=== PATIENT | female | born 1940 | race Caucasian/White ===

== ENCOUNTER → 2023-07-23 09:56 | Outpatient (BNVA) | payer OTHER, SELFPAY | PROVIDERS: Referring Provider Emergency Medicine; Visit Provider Specialist | DX: S52.571A Other intraarticular fracture of lower end of right radius, initial encounter for closed fracture; W19.XXXA Unspecified fall, initial encounter; Z46.89 Encounter for fitting and adjustment of other specified devices; S52.501D Unspecified fracture of the lower end of right radius, subsequent encounter for closed fracture with routine healing; X58.XXXD Exposure to other specified factors, subsequent encounter | CPT/HCPCS: 25600; 73110; 97760; 99204; L3982 ==

== ENCOUNTER 2023-07-23 11:06 | Outpatient (CLI) | payer MEDICARE, MEDICAID, SELFPAY | END 2023-07-23 11:07 | disposition home or self-care (01) | LOC: SPT 11:07 | PROVIDERS: Visit Provider Specialist | DX: Z46.89 Encounter for fitting and adjustment of other specified devices (principal); S52.501D Unspecified fracture of the lower end of right radius, subsequent encounter for closed fracture with routine healing; X58.XXXD Exposure to other specified factors, subsequent encounter | CPT/HCPCS: 25600; 97760; 99204; L3982 ==

== ENCOUNTER 2025-09-01 02:22 | Inpatient (IN) | payer MEDICARE, MEDICAID, SELFPAY ==
[2025-09-01] VITALS (19 sets, daily range): BP systolic 101–149; BP diastolic 52–82; PULSE 84–111; RESP 16–18; TEMP 36.4–37; O2SAT 90–97
--- NOTE | 2025-09-01 02:41 | XRR_ITS ---
PROCEDURE INFORMATION: Exam: XR Right Hip Exam date and time: 09/01/2025 2:49 AM Age: 85 years old Clinical indication: Hip pain; Right hip; PT very combative. Not following instructions. Hitting staff. ; Additional info: Fall, rle IR TECHNIQUE: Imaging protocol: Radiologic exam of the right hip. Views: 1 view hip with pelvis when performed. COMPARISON: No relevant prior studies available. FINDINGS: Bones/joints: Displace intertrochanteric/subtrochanteric femoral fracture with proximal femoral shaft override. The femoral head remains seated in the acetabulum. The right hemipelvis appears intact. Soft tissues: Unremarkable. XR/XR hip RT 1V wo/w pel [id number] IMPRESSION: Displace intertrochanteric/subtrochanteric femoral fracture with proximal femoral shaft override.
--- NOTE | 2025-09-01 02:43 | ED_ITS ---
HPI - Extremity Injury (Lower) 2 General: Chief Complaint: Fall Stated Complaint: right hip pain post fall Time Seen by Provider: 09/01/25 02:33 Related Data Home Medications ?Medication ?Instructions ?Recorded ?Confirmed omeprazole 20 mg capsule,delayed 20 mg PO DAILY 09/01/25 release acetaminophen 325 mg tablet 650 mg PO QID PRN Fever Or Pain 09/01/25 09/01/25 (Tylenol) bisacodyl 10 mg rectal suppository 10 mg [place] DAILY PRN Constipation 09/01/25 09/01/25 bisacodyl 5 mg tablet 20 mg PO DAILY PRN Constipat ion 09/01/25 09/01/25 brexpiprazole 2 mg tablet (Rexulti) 2 mg PO DAILY 08/0509/01/25 diphenhydramine HCl 25 mg capsule 25 mg PO TID PRN Surjit h 09/01/25 09/01/25 (Benadryl) haloperidol 1 mg tablet 1 mg PO DAILY 09/01/2509/01 hydrocodone 5 mg-acetaminophen 325 1 tab PO Q6H PRN Pa in 09/01/25 09/01/25 mg tablet lorazepam 2 mg/mL oral concentrate 0.5 mg PO Q2H PRN r estlessness 09/01/25 09/01/25 magnesium hydroxide 400 mg/5 mL 15 ml PO DAILY PRN Con stipation 09/01/25 09/01/25 oral suspension (Milk of Magnesia) morphine concentrate 100 mg/5 mL 0.25 mg PO Q4H PRN Pa in 09/01/25 09/01/25 (20 mg/mL) oral solution polyethylene glycol 3350 17 17 g PO DAILY PRN Constipa tion 09/01/25 09/01/25 gram/dose oral powder (Miralax) rivastigmine 9.5 mg/24 hour 9.5 mg transdermal DAILY 1 09/01/25 transdermal patch (Exelon Patch) sennosides 8.6 mg-docusate sodium 2 tab-cap PO DAILY P RN bowel 09/01/25 09/01/25 50 mg tablet (Senna-S) movement sodium phosphates 19 gram-7 118 ml [place] DAILY PRN Consti pation 09/01/25 09/01/25 gram/118 mL enema (Enema) Previous Rx's ?Medication ?Instructions ?Recorded fast form cock up splint #1 ea 07/23/23 Allergies Allergy/AdvReac Type Severity Reaction Status Date / Time No Known Allergies Allergy Verified 07/23/23 09:48 PFS ED 2 PFSH: Medical History (Updated 09/01/25 @ 08:11 by Danyelle Amin MD) Anxiety Social History (Updated 07/23/23 @ 09:50 by Rudi Pierre LPN) Smoking and tobacco/nicotine status: never used tobacco/nicotine Alcohol intake: never Substance/Drug Use: never Course 2 Vital Signs: Vital signs: Vital Signs Temperature 97.5 F L 09/02/25 04:00 Pulse Rate 98 09/02/25 04:00 Respiratory Rate 16 09/02/25 04:00 Blood Pressure 148/75 09/02/25 04:00 Pulse Oximetry 93 09/02/25 04:00 Oxygen Delivery Me thod Room Air 09/01/25 11:04 MDM - Extremity Injury (Lower) Lab Data 09/02/25 02:55 09/02/25 02:55 Radiology Impressions Hip X-Ray 09/01/25 02:41 IMPRESSION: Displace intertrochanteric/subtrochanteric femoral fracture with proximal femoral shaft override. Femur X-Ray 09/01/25 11:01 IMPRESSION: 1. The distal 50% of the femur is out of the [id number]. Again noted is intertrochanteric fracture of the RIGHT hip with coxa vera deformity. 2. There may be a large fecal impaction in the central pelvis. Suggest KUB for follow-up. Discharge Plan Discharge Patient Disposition: Admitted As Inpatient Admit Provider: Danyelle Amin Condition: Stable Coding Level of Care Code ED Core Machine Operator for Rakesh Kelly
--- NOTE | 2025-09-01 02:43 | W.ED.LOWEXIN ---
HPI - Extremity Injury (Lower) General: Chief Complaint: Fall Stated Complaint: right hip pain post fall Time Seen by Provider: 09/01/25 02:33 Related Data Home Medications ?Medication ?Instructions ?Recorded ?Confirmed omeprazole 20 mg capsule,delayed 20 mg PO DAILY 07/23/23 09/01/25 release acetaminophen 325 mg tablet 650 mg PO QID PRN Fever Or Pain 09/01/25 09/01/25 (Tylenol) bisacodyl 10 mg rectal suppository 10 mg [place] DAILY PRN Constipation 09/01/25 09/01/25 bisacodyl 5 mg tablet 20 mg PO DAILY PRN Constipation 09/01/25 09/01/25 brexpiprazole 2 mg tablet (Rexulti) 2 mg PO DAILY 09/01/25 09/01/25 diphenhydramine HCl 25 mg capsule 25 mg PO TID PRN Rash 09/01/25 09/01/25 (Benadryl) haloperidol 1 mg tablet 1 mg PO DAILY 09/01/25 09/01/25 hydrocodone 5 mg-acetaminophen 325 1 tab PO Q6H PRN Pain 09/01/25 09/01/25 mg tablet lorazepam 2 mg/mL oral concentrate 0.5 mg PO Q2H PRN restlessness 09/01/25 09/01/25 magnesium hydroxide 400 mg/5 mL 15 ml PO DAILY PRN Constipation 09/01/25 09/01/25 oral suspension (Milk of Magnesia) morphine concentrate 100 mg/5 mL 0.25 mg PO Q4H PRN Pain 09/01/25 09/01/25 (20 mg/mL) oral solution polyethylene glycol 3350 17 17 g PO DAILY PRN Constipation 09/01/25 09/01/25 gram/dose oral powder (Miralax) rivastigmine 9.5 mg/24 hour 9.5 mg transdermal DAILY 09/01/25 09/01/25 transdermal patch (Exelon Patch) sennosides 8.6 mg-docusate sodium 2 tab-cap PO DAILY PRN bowel 09/01/25 09/01/25 50 mg tablet (Senna-S) movement sodium phosphates 19 gram-7 118 ml [place] DAILY PRN Constipation 09/01/25 09/01/25 gram/118 mL enema (Enema) Previous Rx's ?Medication ?Instructions ?Recorded fast form cock up splint #1 ea 07/23/23 Allergies Allergy/AdvReac Type Severity Reaction Status Date / Time No Known Allergies Allergy Verified 07/23/23 09:48 PFS ED PFSH: Medical History (Updated 09/01/25 @ 08:11 by Danyelle Amin MD) Anxiety Social History (Updated 07/23/23 @ 09:50 by Rudi Pierre LPN) Smoking and tobacco/nicotine status: never used tobacco/nicotine Alcohol intake: never Substance/Drug Use: never Course Vital Signs: Vital signs: Vital Signs Temperature 97.5 F L 09/02/25 04:00 Pulse Rate 98 09/02/25 04:00 Respiratory Rate 16 09/02/25 04:00 Blood Pressure 148/75 09/02/25 04:00 Pulse Oximetry 93 09/02/25 04:00 Oxygen Delivery Me thod Room Air 09/01/25 11:04 MDM - Extremity Injury (Lower) Lab Data 09/02/25 02:55 09/02/25 02:55 Radiology Impressions Hip X-Ray 09/01/25 02:41 IMPRESSION: Displace intertrochanteric/subtrochanteric femoral fracture with proximal femoral shaft override. Femur X-Ray 09/01/25 11:01 IMPRESSION: 1. The distal 50% of the femur is out of the [id number]. Again noted is intertrochanteric fracture of the RIGHT hip with coxa vera deformity. 2. There may be a large fecal impaction in the central pelvis. Suggest KUB for follow-up. Discharge Plan Discharge Patient Disposition: Admitted As Inpatient Admit Provider: Danyelle Amin Condition: Stable Coding Level of Care Code ED Header Operator for Rakesh Fwashia
[2025-09-01] MEDS: diphenhydrAMINE 50 mg/mL SDV 1mL IM (03:00)
[2025-09-01] MEDS: haloperidol inj 5 mg/mL INJ 1 mL 2 MG IM ×2 (03:00→20:12)
[2025-09-01] MEDS: morphine 4 mg/mL SDV 1 mL 2 MG IM (06:06)
--- NOTE | 2025-09-01 06:52 | PM.HP ---
Providers/Chief Complaint Admitting Physician: Danyelle Amin MD--patient admitted at 7 AM Chief Complaint: right hip pain post fall History of Present Illness Lila Pitt is a 85 year old female assisted resident with a history of dementia who had sustained a mechanical fall fracturing the right hip. Patient then was brought in to be evaluated and possibly repaired at the broken hip. Patient is very demented cannot give you any history. The paper for the power of integration aide is in the patient's chart. Patient does have history of anxiety disorder on BuSpar in depression on antidepressants but no significant medical problem. Patient seem to be doing okay, calm and quiet orthopedics Dr. Cooper had been consulted for care. And I have contacted the team Dr. Cooper at this time is actively operating on someone in the surgical suite. Medications/Allergies Home Medications ?Medication ?Instructions ?Recorded ?Confirmed ?Last Taken ?Type buspirone 15 mg tablet 15 mg PO BID 07/23/23 07/23/23 Unknown History escitalopram oxalate 5 mg tablet 5 mg PO DAILY 07/23/23 07/23/23 Unknown History (Lexapro) fast form cock up splint #1 ea 07/23/23 07/23/23 Unknown Rx fluoxetine 20 mg capsule (Prozac) 20 mg PO DAILY 07/23/23 07/23/23 Unknown History lorazepam 0.5 mg tablet 0.5 mg PO TID 07/23/23 07/23/23 Unknown History mirtazapine 15 mg tablet 15 mg PO DAILY 07/23/23 07/23/23 Unknown History omeprazole 20 mg capsule,delayed 20 mg PO DAILY 07/23/23 07/23/23 Unknown History release sennosides 8.6 mg capsule (senna) 8.6 mg PO DAILY 07/23/23 07/23/23 Unknown History Allergies Allergy/AdvReac Type Severity Reaction Status Date / Time No Known Allergies Allergy Verified 07/23/23 09:48 PFSH Acute PFSH: Medical History (Updated 09/01/25 @ 08:11 by Danyelle Amin MD) Anxiety Social History (Updated 07/23/23 @ 09:50 by uRdi Pierre LPN) Smoking and tobacco/nicotine status: never used tobacco/nicotine Alcohol intake: never Substance/Drug Use: never Vitals/I&O/Wt Last Vital Signs Temp 98.2 F 09/01/25 02:54 Pulse 95 09/01/25 05:13 Resp 16 09/01/25 06:06 BP 105/53 09/01/25 05:13 Pulse Ox 96 09/01/25 06:06 O2 Del Method Room Air 09/01/25 04:28 Weight last 48 hrs Weight 43.091 kg Physical Exam Narrative: Patient does not look ill-appearing does not look to be in pain and is not Bogart for pain medication. HEENT patient is lying down in no apparent distress, normocephalic atraumatic neck neck is supple cardiovascular heart rate is regular lungs are pretty much clear abdomen soft nontender nondistended unremarkable extremities are intact no edema has good pulses neurology has no focality lab studies lab studies reviewed and noted. A&P Assessment and plan 1. Closed right hip fracture: 2. Anxiety disorder: 3. GERD (gastroesophageal reflux disease): 4. Acute right hip pain: Plan: Right hip fracture status post mechanical fall - Admit to medical surgery unit - Orthopedics consulted - Must continue to follow through and optimize - Patient had been made n.p.o. - Patient can have sips of water with medication - Patient is with dementia and needs care and explaining things but cannot give consent to procedure but the power of integration aide papers are on chart for this patient for use. Anxiety disorder - Continue patient's BuSpar Depression - Continue patient home antidepressant GI and DVT prophylaxis in place PDMP PDMP Reviewed: Not Reviewed Attestations Medical Necessity Statement*: Patient status post mechanical fall fracturing the right hip and need for repair and will need at least 2 midnights for care. Coding Level of Care Code 52399 Diagnoses Closed right hip fracture S72.001A Anxiety disorder F41.9 GERD (gastroesophageal reflux disease) K21.9 Acute right hip pain M25.551 Time Spent (min) 60
[2025-09-01] MEDS: pantoprazole 40 mg SDV IVP (08:28)
[2025-09-01] MEDS: morphine 4 mg/mL SDV 1 mL IVP ×2 (09:42→18:36)
--- NOTE | 2025-09-01 11:01 | XR_ITS ---
WS: [id number] Exam: XR femur RT min 2V* [id number] Date/Time of Exam: 09/01/2025 11:01 AM Reason For Exam: right hip fx Of the upper 50% of the femur is imaged. Again noted is an intertrochanteric fracture of the RIGHT hip with pronounced coxa vera deformity. Avulsion of the lesser trochanter. The distal 50% of the femur is not visualized. Incidentally noted is what appears to represent a large fecal impaction in the visualized mid pelvis. Detailed XR/XR femur RT min 2V* [id number] IMPRESSION: 1. The distal 50% of the femur is out of the [id number]. Again noted is inte rtrochanteric fracture of the RIGHT hip with coxa vera deformity. 2. There may be a large fecal impaction in the central pelvis. Suggest KUB for follow-up.
--- NOTE | 2025-09-01 11:19 | PM.CONSULT ---
Documented by User: EMILY Best 09/01/25 15:12 Providers/Reason For Consult Consulting Physician/Specialty*: Dr. Allison DO/orthopedic surgeon Reason for Consult*: Right hip fracture Requesting Physician: Dr. Weiner/emergency room physician Attending Physician: Akiko Birmingham MD History of Present Illness History of Present Illness Lila Pitt is a 85 year old female prison resident with a history of dementia who had sustained a mechanical fall fracturing the right hip. Patient is very demented cannot give you any history. Patient is not on any blood thinners. The paper for the power of assistant attorney general is in the patient's chart. No family members listed in chart to contact. HPI obtained from reviewing ER note and hospitalist note. Review of Systems General: Reports: ROS unobtainable due to mental status Medications/Allergies Home Medications ?Medication ?Instructions ?Recorded ?Confirmed ?Last Taken ?Type buspirone 15 mg tablet 15 mg PO BID 07/23/23 07/23/23 Unknown History escitalopram oxalate 5 mg tablet 5 mg PO DAILY 07/23/23 07/23/23 Unknown History (Lexapro) fast form cock up splint #1 ea 07/23/23 07/23/23 Unknown Rx fluoxetine 20 mg capsule (Prozac) 20 mg PO DAILY 07/23/23 07/23/23 Unknown History lorazepam 0.5 mg tablet 0.5 mg PO TID 07/23/23 07/23/23 Unknown History mirtazapine 15 mg tablet 15 mg PO DAILY 07/23/23 07/23/23 Unknown History omeprazole 20 mg capsule,delayed 20 mg PO DAILY 07/23/23 07/23/23 Unknown History release sennosides 8.6 mg capsule (senna) 8.6 mg PO DAILY 07/23/23 07/23/23 Unknown History Allergies Allergy/AdvReac Type Severity Reaction Status Date / Time No Known Allergies Allergy Verified 07/23/23 09:48 Current Medications Generic Name Dose Route Start Last Admin Trade Name Freq PRN Reason Stop Dose Admin Sodium Chloride 1,000 mls @ 75 mls/hr 09/01/25 08:00 09/01/25 09:35 Sodium Chloride 0.9% IV 75 mls/hr .[id number] LILLI Administration Morphine Sulfate 4 mg 09/01/25 07:52 09/01/25 09:42 Morphine 4 Mg/Ml Sdv 1 Ml IVP 4 mg Q4H PRN Administration SEVERE PAIN Pantoprazole Sodium 40 mg 09/01/25 08:00 09/01/25 08:28 Pantoprazole 40 Mg Sdv IVP 40 mg Q24H LILLI Administration PFSH Acute PFSH: Medical History (Updated 09/01/25 @ 08:11 by Danyelle Amin MD) Anxiety Social History (Updated 07/23/23 @ 09:50 by Rudi Pierre LPN) Smoking and tobacco/nicotine status: never used tobacco/nicotine Alcohol intake: never Substance/Drug Use: never Vitals/I&O/Wt Last Vital Signs Temp 97.7 F 09/01/25 11:04 Pulse 102 H 09/01/25 11:04 Resp 16 09/01/25 11:04 BP 125/70 09/01/25 11:04 Pulse Ox 96 09/01/25 11:04 O2 Del Method Room Air 09/01/25 11:04 Weight last 48 hrs Weight 91 lb 7 oz Weight 95 lb Physical Exam Narrative: Patient is laying comfortably in bed and in no acute distress. Due to patient's dementia exam is limited. Const: COMMON NORMALS: no acute distress and alert Resp: COMMON NORMALS: normal respiratory effort and No retractions Cardio: COMMON NORMALS: Peripheral pulses 2+ throughout PERIPHERAL PULSES: Peripheral pulses 2+ throughout Extremity: NARRATIVE EXTREMITY EXAM: (Right) lower extremity- Positive logroll test. Tenderness to palpation right hip. compartments are soft and compressible. Toes are warm and well-perfused. Pedal pulse 2+. Secondary assessment of other extremities. Upper extremities-no visible injuries, abrasions. Full range of motion in shoulders, elbows and wrist. no tenderness to palpation of shoulders or wrist. (Left) lower extremity-no visible injury or trauma seen. Negative logroll test. Pedal pulse 2+ Neuro: SENSORIUM/ORIENTATION: Yes alert Skin: GENERAL SKIN EXAM: dry skin Data 09/01/25 14:15 09/01/25 13:18 A&P Assessment and plan 1. Closed right hip fracture: Plan: Plan: -Imaging and Labs reviewed -Hospitalist on board for medical management. -VTE prophylaxis -Nonweightbearing on right leg -Pain control - Continue n.p.o. today -Surgery later today for Right hip Trochanteric femur nail PDMP PDMP Reviewed: Not Reviewed Coding Level of Care Code Acute Code for Chg Fwd Diagnoses Closed right hip fracture S72.001A Documented by User: Rodger Cooper DO 09/01/25 14:44 Medications/Allergies Home Medications ?Medication ?Instructions ?Recorded ?Confirmed ?Last Taken ?Type buspirone 15 mg tablet 15 mg PO BID 07/23/23 07/23/23 Unknown History escitalopram oxalate 5 mg tablet 5 mg PO DAILY 07/23/23 07/23/23 Unknown History (Lexapro) fast form cock up splint #1 ea 07/23/23 07/23/23 Unknown Rx fluoxetine 20 mg capsule (Prozac) 20 mg PO DAILY 07/23/23 07/23/23 Unknown History lorazepam 0.5 mg tablet 0.5 mg PO TID 07/23/23 07/23/23 Unknown History mirtazapine 15 mg tablet 15 mg PO DAILY 07/23/23 07/23/23 Unknown History omeprazole 20 mg capsule,delayed 20 mg PO DAILY 07/23/23 07/23/23 Unknown History release sennosides 8.6 mg capsule (senna) 8.6 mg PO DAILY 07/23/23 07/23/23 Unknown History Allergies Allergy/AdvReac Type Severity Reaction Status Date / Time No Known Allergies Allergy Verified 07/23/23 09:48 PFSH Acute PFSH: Medical History (Updated 09/01/25 @ 08:11 by Danyelle Amin MD) Anxiety Social History (Updated 07/23/23 @ 09:50 by Rudi Pierre LPN) Smoking and tobacco/nicotine status: never used tobacco/nicotine Alcohol intake: never Substance/Drug Use: never Physical Exam Extremity: NARRATIVE EXTREMITY EXAM: (Right) lower extremity- Positive logroll test. Tenderness to palpation right hip. compartments are soft and compressible. Toes are warm and well-perfused. Pedal pulse 2+. Secondary assessment of other extremities. Upper extremities-no visible injuries, abrasions. Patient is unable to follow commands but will involuntarily move shoulders elbows and wrist. no tenderness to palpation of shoulders or wrist. (Left) lower extremity-no visible injury or trauma seen. Negative logroll test. Pedal pulse 2+ Data 09/01/25 14:15 09/01/25 13:18 A&P Assessment and plan 1. Closed right hip fracture: Plan: Plan: -Imaging and Labs reviewed -Hospitalist on board for medical management. -VTE prophylaxis -Nonweightbearing on right leg -Pain control - Continue n.p.o. today -Surgery later today for Right hip Trochanteric femur nail Orthopedic attending addendum: Patient at this point in time is severely demented and presented to the emergency department after sustaining a fall and has a displaced right hip intertrochanteric femur fracture. Patient unfortunately given her dementia is unable to obtain a history from the patient review of her medical records she is not on any blood thinners. As well as discussing with the hospitalist patient has been n.p.o. since midnight. Patient at this point in time has a POA who we spoke to on the phone we talked about the ins and outs of her diagnosis as far as the treatment options far as nonoperative operative mention. We talked about the risk benefits complication alternatives surgical nonsurgical treatment options. Risk of surgery include but not limited to make a better make it worse, injury to nerves vessels or tendons, infection, hardware failure, on the table. Understanding risk of surgery patient's POA agrees and elects to proceed with surgical intervention for a right hip trochanteric femur nail. Plan for this and benefit would be of pain control mostly for the patient as well as comfort while she mobilizes for transfers as this would allow for weightbearing as tolerated. Once again POA understands agrees to current plan. All questions answered. Will proceed with surgical intervention today. Orthopedic attending update: 2:35 PM?reach back out to POA and updated her labs that were obtained in the preop area demonstrated her hemoglobin was 5.8 and her recheck demonstrated 5.5 getting this low hemoglobin we will hold off on her surgery today with plan of getting her PRBCs today and get her optimized for surgical intervention tomorrow. I did speak with the hospitalist as well as her POA and are on the same page moving forward with the plan of optimizing her with blood today and plan for surgical intervention for right hip trochanteric femur nail tomorrow we will call and update POA tomorrow. All questions answered. PDMP PDMP Reviewed: Not Reviewed Coding Level of Care Code Acute Code for Chg Fwd Diagnoses Closed right hip fracture S72.001A
--- NOTE | 2025-09-01 12:48 | PC.NURSE ---
1245 patient went down to surgery.
[2025-09-01] MEDS: midazolam 1 mg/mL INJ 2 mL 2 MG IVP ×2 (13:09→14:59)
[2025-09-01 13:33] LABS: Mean Corpuscular HGB Conc 28.3 g/dL (30-55); Mean Corpuscular Hemoglobin 19.5 pg (27-33); Mean Corpuscular Volume 68.8 fl (85-98); Nucleated Red Blood Cells % 0 %; Platelet Count 360 10^3/cmm (157-399); Red Blood Count 2.98 10^6/uL (3.85-5.65); White Blood Count 7.66 10^3/uL (3.29-11.43)
[2025-09-01] MEDS: acetaminophen 1,000 MG/100 ML PIGGYBACK 400 MG IV (13:33)
[2025-09-01 13:52] LABS: Anion Gap 17.8 (5-19); Blood Urea Nitrogen 14 mg/dL (8-23); Calcium 7.8 mg/dL (8.5-10.5); Carbon Dioxide 21 mmol/L (22-29); Chloride 103 mmol/L (98-107); Creatinine Clr Calc Pharmacy 32.4383; Glucose 109 mg/dL (65-115); Osmolality Calculated 287 mOsm/kg (285-295); Potassium 3.8 mmol/L (3.5-5.1); Sodium 138 mmol/L (136-145)
[2025-09-01 13:56] LABS: Hematocrit 20.5 % (36-47); Hemoglobin 5.80 g/dL (11.27-16.99)
--- NOTE | 2025-09-01 14:02 | ECG_ITS ---
[facility] Pat Name: Lila Pitt Department: Room: 251 Gender: Female [employer]ate Black Belt: : 1940 Requested By: Karon Jimenes Order Number: [id number] Esteban MD: Doc Villatoro M.D. Measurements Intervals [place] Rate: 110 P: 48 OR: 108 QRS: 24 QRSD: 101 T: 79 QT: 286 QTc: 388 Interpretive Statements SINUS TACHYCARDIA WITH SHORT OR INTERVAL WITH OCCASIONAL SUPRAVENTRICULAR PREMATURE COMPLEXES NONSPECIFIC T-WAVE ABNORMALITY ABNORMAL RHYTHM ECG No previous ECG available for comparison Electronically Signed On 09-03-2025 20:46:19 CDT by Doc Villatoro M.D. [email or web address] [email or web address]
--- NOTE | 2025-09-01 14:13 | PM.MISC ---
Miscellaneous Note Purpose of Documentation: Patient presented with fall s/p right [facility] fracture [facility] Severely demented Note: Patient admitted as a case of right hip fracture for further management, orthopedics team made aware Power of corporate attorney Ms. jefferson was called and further explained that the patient is DNR however for the sake of surgery will proceed accordingly. CBC results came around 1:30 PM and was found to have severely low hemoglobin however there was no hemodynamic compromise, informed the PACU unit for further intervention. CBC repeat to be drawn and then according to the hemoglobin for blood transfusion and later to proceed with the surgery safely Anemia workup Possible surgery consult for need of endoscopy versus conservative management PPI twice daily Sucralfate Q6 hourly CBC every 8 every 8 hourly Magnesium phosphorus and TSH CMP in the morning Maintain normal vitals Patient requires one-to-one observation due to her severe dementia and uncooperative behavior Haldol as needed for agitation Patient power of corporate attorney has been made aware about all the plans with risk and benefits, understands and agree with the team management without any language barrier. All the complications has been also discussed and appreciate the management of the team. The patient is being managed according to her current medical condition in her best interest based on guidelines/recommendation.
[2025-09-01 14:21] LABS: Mean Corpuscular HGB Conc 28.6 g/dL (30-55); Mean Corpuscular Hemoglobin 19.6 pg (27-33); Mean Corpuscular Volume 68.3 fl (85-98); Nucleated Red Blood Cells % 0 %; Platelet Count 339 10^3/cmm (157-399); Red Blood Count 2.81 10^6/uL (3.85-5.65); White Blood Count 7.50 10^3/uL (3.29-11.43)
[2025-09-01 14:29] LABS: Hemoglobin 5.50 g/dL (11.27-16.99)
[2025-09-01 14:30] LABS: Hematocrit 19.2 % (36-47)
--- NOTE | 2025-09-01 14:44 | ANES.PREANE2 ---
Pre-Anesthetic Assessment Height/Weight: Height 1.6 m Weight 41.475 kg Temp Pulse Resp BP Pulse Ox O2 Del Method 97.7 F 102 H 16 125/70 96 Room Air 09/01/25 11:04 09/01/25 11:04 09/01/25 11:04 09/01/25 11:04 09/01/25 11:04 09/01/25 11:04 Preop Diagnosis: Hip fracture (R) Operation Date: 09/01/25 13:20 Proposed Procedures p Trochanteric Femoral Nail(Right) - Rodger Allison, DO Familial anesthetic complications: none Was Beta Tabitha taken within 24 hours: N/A Was Clonidine taken within 24 hours: N/A Social No alcohol and No tobacco Exam alert, clear to auscultation bilaterally and regular rate & rhythm GI Gastroesophageal Reflux Disease Anesthetic Plan ASA status: 2 Anesthesia: General Risk of > 500 ml blood loss (7ml/kg in children): No Other Pertinent Information history obtained from chart review of POA - Hgb reading critically low. WIll require transfusion. Medications/Allergies Home Medications ?Medication ?Instructions ?Recorded ?Confirmed ?Last Taken ?Type buspirone 15 mg tablet 15 mg PO BID 07/23/23 07/23/23 Unknown History escitalopram oxalate 5 mg tablet 5 mg PO DAILY 07/23/23 07/23/23 Unknown History (Lexapro) fast form cock up splint #1 ea 07/23/23 07/23/23 Unknown Rx fluoxetine 20 mg capsule (Prozac) 20 mg PO DAILY 07/23/23 07/23/23 Unknown History lorazepam 0.5 mg tablet 0.5 mg PO TID 07/23/23 07/23/23 Unknown History mirtazapine 15 mg tablet 15 mg PO DAILY 07/23/23 07/23/23 Unknown History omeprazole 20 mg capsule,delayed 20 mg PO DAILY 07/23/23 07/23/23 Unknown History release sennosides 8.6 mg capsule (senna) 8.6 mg PO DAILY 07/23/23 07/23/23 Unknown History Allergies Allergy/AdvReac Type Severity Reaction Status Date / Time No Known Allergies Allergy Verified 07/23/23 09:48 Current Medications Generic Name Dose Route Start Last Admin Trade Name Freq PRN Reason Stop Dose Admin Sodium Chloride 1,000 mls @ 75 mls/hr 09/01/25 08:00 09/01/25 09:35 Sodium Chloride 0.9% IV 75 mls/hr On Hold: 09/01/25 13:04 .[id number] LILLI Administration Comment: Order held by Process Transfer Sodium Chloride 1,000 mls @ 30 mls/hr 09/01/25 13:00 09/01/25 13:32 Sodium Chloride 0.9% IV 09/02/25 12:59 30 mls/hr .Q24H LILLI Administration Midazolam HCl 2 mg 09/01/25 12:57 09/01/25 13:09 Midazolam 1 Mg/Ml Inj 2 Ml IVP 2 mg Q5M PRN Administration Preop Anxiety Morphine Sulfate 4 mg 09/01/25 07:52 09/01/25 09:42 Morphine 4 Mg/Ml Sdv 1 Ml IVP 4 mg On Hold: 09/01/25 13:04 Q4H PRN Administration Comment: Order held by Process [facility] Transfer Pantoprazole Sodium 40 mg 09/01/25 08:00 09/01/25 08:28 Pantoprazole 40 Mg Sdv IVP 40 mg On Hold: 09/01/25 13:04 Q24H LILLI Administration Comment: Order held by Process Transfer [facility] Anesthesia Medical History (Updated 09/01/25 @ 08:11 by Danyelle Amin MD) Anxiety Social History (Updated 07/23/23 @ 09:50 by Rudi Pierre LPN) Smoking and tobacco/nicotine status: never used tobacco/nicotine Alcohol intake: never Substance/Drug Use: never Data Anesthesia 09/01/25 14:15 09/01/25 13:18 Short CBC 09/01/25 09/01/25 Range/Units 13:18 14:15 WBC 7.66 7.50 (3.29-11.43) 10^3/uL Hgb 5.80 L* 5.50 L* (11.27-16.99) g/dL Hct 20.5 L* 19.2 L* (36-47) % MCV 68.8 L 68.3 L (85-98) fl Plt Count 360 339 (157-399) 10^3/cmm Neut % (Auto) 80.3 80.0 % Neut # (Auto) 6.15 6.00 (1.8-7.7) 10^3/uL BMP 09/01/25 13:18 Sodium 138 Potassium 3.8 Chloride 103 Carbon Dioxide 21 L BUN 14 Creatinine 0.5 Glucose 109 Calcium 7.8 L Blood Bank 09/01/25 13:18 Blood Type O Positive Rho(D) Type Rh positive Antibody Screen Negative
[2025-09-01 15:07] LABS: Magnesium 1.9 mg/dL (1.7-2.3); Thyroid Stimulating Hormone 1.61 uIU/mL (0.27-4.20)
[2025-09-01 16:31] LABS: Ferritin 8 ng/mL (15-150); Iron 10 ug/dL (37-145)
[2025-09-01 16:45] LABS: Vitamin B12 211 pg/mL (232-1245)
[2025-09-01 16:54] LABS: Free T4 Free Thyroxine 1.25 ng/dL (0.82-1.77)
[2025-09-01 19:08] LABS: Alanine Aminotransferase 10 U/L (0-33); Albumin Level 2.8 g/dL (3.5-5.2); Alkaline Phosphatase 97 U/L (35-105); Aspartate Amino Transferase 26 U/L (0-32); Globulin 3.2 g/dL (1.3-4.6); Total Protein 6.0 g/dL (6.6-8.7)
--- NOTE | 2025-09-01 22:00 | PC.NURSE ---
Agitation and Ativan administration: Pt is agitated, yelling out and pulling at lines. CARLOS Garcia replaced her IV for blood transfusion and the pt had it pulled out within 15 minutes. Replaced the IV a second time and CARLOS Lopez went to sit with the patient so we can keep her IV in and she can receive the second unit of blood ordered. Dr. Amin called to check in on the patient and see if the Haldol previously ordered helped, informed her it did not. Gas Collection System Operator received additional orders of Haldol 5mg IV X1 now and Ativan 0.5mg IV X1 now. Unable to pull Ativan from [facility] - it said medication not available . This nurse overrode the Ativan, vial was 2mg/ml. 0.5mg was drawn up remainder was wasted. Ativan 0.5mg was given by brief writer with CARLOS Lopez at the bedside. Unable to scan medication due to order not matching the vial pulled.
[2025-09-01] MEDS: haloperidol inj 5 mg/mL INJ 1 mL IVP (23:53)
[2025-09-01] MEDS: LORazepam 1 MG/0.5 ML injection 0.5 MG IVP (23:56)
[2025-09-02] VITALS (16 sets, daily range): BP systolic 105–149; BP diastolic 62–78; PULSE 87–121; RESP 16–18; TEMP 36.4–37.4; O2SAT 93–96
[2025-09-02] MEDS: morphine 4 mg/mL SDV 1 mL IVP ×2 (01:19→23:45)
--- NOTE | 2025-09-02 01:43 | PC.NURSE ---
ativan admin -- tried to pull 0.5mg ativan from pyxis but it stated medication not loaded Gabrielle RN overide for ativan and pulled 2mg vial as that was the vial available in our pyxis. Medication would also not scan at the bedside, nor would it allow her to change amount given 0.5mg for the stk med administration. It was then manually entered under the 0.5mg order with Jessica GONZALEZ at bedside for witness. 0.5mg ativan drawn up and given to patient and 1.75mg of ativan was wasted.
[2025-09-02 03:07] LABS: Hematocrit 29.2 % (36-47); Hemoglobin 8.80 g/dL (11.27-16.99); Mean Corpuscular HGB Conc 30.1 g/dL (30-55); Mean Corpuscular Hemoglobin 22.4 pg (27-33); Mean Corpuscular Volume 74.3 fl (85-98); Nucleated Red Blood Cells % 0 %; Platelet Count 295 10^3/cmm (157-399); Red Blood Count 3.93 10^6/uL (3.85-5.65); White Blood Count 7.38 10^3/uL (3.29-11.43)
[2025-09-02 03:26] LABS: Alanine Aminotransferase < 5 U/L (0-33); Albumin Level 2.9 g/dL (3.5-5.2); Alkaline Phosphatase 99 U/L (35-105); Anion Gap 14.9 (5-19); Aspartate Amino Transferase 33 U/L (0-32); Blood Urea Nitrogen 13 mg/dL (8-23); Calcium 8.0 mg/dL (8.5-10.5); Carbon Dioxide 23 mmol/L (22-29); Chloride 104 mmol/L (98-107); Creatinine Clr Calc Pharmacy 32.4383; Globulin 3.0 g/dL (1.3-4.6); Glucose 110 mg/dL (65-115); Osmolality Calculated 287 mOsm/kg (285-295); Potassium 3.9 mmol/L (3.5-5.1); Sodium 138 mmol/L (136-145); Total Protein 5.9 g/dL (6.6-8.7)
[2025-09-02 06:33] LABS: Hematocrit 28.4 % (36-47); Hemoglobin 8.80 g/dL (11.27-16.99); Mean Corpuscular HGB Conc 31.0 g/dL (30-55); Mean Corpuscular Hemoglobin 22.9 pg (27-33); Mean Corpuscular Volume 74.0 fl (85-98); Nucleated Red Blood Cells % 0 %; Platelet Count 302 10^3/cmm (157-399); Red Blood Count 3.84 10^6/uL (3.85-5.65); White Blood Count 6.97 10^3/uL (3.29-11.43)
--- NOTE | 2025-09-02 10:13 | PC.SOCIAL ---
IMM Update pg 2 of IMM Updated and reviewed w/patients Aydee LOMELI. Copy left @ bedside and copy dated, timed, initialed and placed in chart.
[2025-09-02] MEDS: fentaNYL 50 mcg/mL INJ 2mL 25 MCG IVP (13:07)
--- NOTE | 2025-09-02 13:40 | P.HPUD_ITS ---
Surgery/Procedure H&P Update DATE OF PROCEDURE: September 02, 2025 DATE H&P PERFORMED: 09/01/25 H&P UPDATE INFORMATION: I have reviewed H&P completed within last 30 days, I have examined patient prior to procedure and No changes to prior documentation CHANGES TO PREVIOUS DOCUMENTATION: Patient at this point in time has at this placed right hip intertrochanteric femur fracture I talked with Colette yesterday her POA about surgical intervent ion which she is in agreements and verbally consented over the phone proceeding with this. We did talk about her risks with the procedure as well which she understands and agreeable to proceeding with this for her yesterday her surgery was canceled due to her low hemoglobin she is receive units of PRBC and today her hemoglobin is 8.8 ready and optimized per the primary team to proceed with surgical intervention today for a right hip trochanteric femur nail. POA understands and agrees with current plan. All questions answered. PREOP DIAGNOSIS: Right hip intertrochanteric femur fracture displaced PRIMARY INDICATION FOR PROCEDURE: Right hip intertrochanteric femur fracture displaced PLANNED PROCEDURE: Operation Date: 09/01/25 13:20 Proposed Procedures p Trochanteric Femoral Nail(Right) - Rodger Cooper DO Operation Date: 09/02/25 14:00 Proposed Procedures p Trochanteric Femoral Nail(Right) - Rodger Cooper DO
--- NOTE | 2025-09-02 15:04 | PM.MISC ---
Miscellaneous Note Purpose of Documentation: Orthopedic note update: Patient was in the preoperative area and the room was being set up it was identified that there was the tray for the surgery was contaminated. Unfortunately this was our last set at the institution and this had to undergo the entire sterilization process. At this point in time I did call and update the POA about the current situation. Talked about doing this procedure later this evening once this is done versus tomorrow morning after a long thoughtful discussion with the POA about the options here moving forward she will would like for us to just take care of this in the morning where we have both of our trays are completely sterilized and optimal position with patient having this done first case in the morning. I did let her know she is roughly right at the 48-hour janae roughly overnight and is just waiting a couple hours I do not feel this would be a big hindrance on her outcomes and recovery which we did detail about this in detail. As a result patient surgery will be canceled for later this evening and plan will be for first thing tomorrow morning for a right hip trochanteric femur nail. Patient's POA understands and agrees with current plan. All questions answered. Rodger Cooper, DO Orthopedic surgery.
[2025-09-02 20:56] LABS: Hematocrit 29.6 % (36-47); Hemoglobin 9.00 g/dL (11.27-16.99); Mean Corpuscular HGB Conc 30.4 g/dL (30-55); Mean Corpuscular Hemoglobin 22.8 pg (27-33); Mean Corpuscular Volume 74.9 fl (85-98); Nucleated Red Blood Cells % 0 %; Platelet Count 305 10^3/cmm (157-399); Red Blood Count 3.95 10^6/uL (3.85-5.65); White Blood Count 9.97 10^3/uL (3.29-11.43)
--- NOTE | 2025-09-02 21:48 | P.PN_ITS ---
Subjective 2 Subjective: Patient was seen in the morning, she was disoriented and still gets sometimes aggressive Case of severe dementia Power of clinical research spec on board for the further plans of care He was planned for right hip fracture management however due to surgery tray contamination the surgery was canceled and to be done later afterwards possible tomorrow. Vitals/I&O/Wt Last Vital Signs Temp 98.1 F 09/02/25 17:00 Pulse 92 09/02/25 17:00 Resp 16 09/02/25 17:00 BP 127/78 09/02/25 17:00 Pulse Ox 96 09/02/25 17:00 O2 Del Method Room Air 09/02/25 15:01 09/02/25 09/02/25 09/02/25 06:59 14:59 22:59 Intake Total 788 / 1008 1000 / 1000 Output Total 850 / 850 Balance 788 / 1008 150 / 150 Weight last 48 hrs Weight 41.64 kg Weight 41.475 kg Weight 43.091 kg Physical Exam 2 Narrative: General: Alert and disoriented, physical deconditioning looks malnourished, sometimes gets agitated on calling due to severe dementia lying comfortably without any distress HEENT: Normocephalic, atraumatic, grossly unremarkable exam Cardio: normal rate rhythm, normal S1-S2 without any murmurs, however patient does not let to examine and sometimes hold the hand or pushes away the stethoscope Respiratory: Normal bilateral air entry but exam is limited due to patient uncooperative behavior GI: Abdomen soft, patient was uncooperative to exam Neuro: She is alert but disoriented however no focal deficit can be appreciated since she moves all her extremities but exam is limited Behavior: Uncooperative and sometimes agitated Extremities: Adequate palpable pulses, no edema or cyanosis observed. Data 09/02/25 20:42 09/02/25 02:55 A&P Assessment and plan 1. Acute right hip pain: Orthopedics on board, plan for right hip surgery Patient optimized for hemoglobin since at the time of admission the patient was uncooperative for blood draw and it was later drawn in the afternoon near the time of surgery. Surgery delayed due to severe anemia S/p blood transfusion and hemoglobin currently stable. No obvious source of bleeding and no hemodynamic compromise Continue to monitor CBC and hemodynamics Patient was for surgery today with due to surgery tray contamination, it is postponed for possible tomorrow Follow up with the surgeons OT PT evaluation Of note: The patient power of clinical research spec mentioned that the patient is DNR however to proceed with her right hip fracture with full code and later on to continue with her DNR status. Thorough discussion has been made with the power of clinical research spec, all the risk and benefits has been discussed, and agreed with the plan of care without any language barrier 2. Severe anemia: Anemia workup showed severe iron deficiency anemia and vitamin B12 deficiency Correction started S/p PRBC and stable hemoglobin Continue to follow CBC and correction accordingly 3. GERD (gastroesophageal reflux disease): PPI daily 4. Severe dementia: Patient started on her home medications for further agitation and to continue 5. Severe malnutrition: Dietitian consulted for further recommendation PDMP PDMP Reviewed: Not Reviewed Attestations 2 Medical Necessity Statement*: Patient will stay overnight for further management of right hip fracture and anemia Time Spent in Patient Care: 16 - 35 minutes (>than 50% of time sp ent in counselling and/or direct pt care on unit) . Other Attestations: Patient condition has been discussed at length with the patient/family, I have independently reviewed the chart labs imaging/diagnostics/EKG. the goals of care and code status with the patient/family/NOK/legal livestock sales representative, and documented accordingly. The management has been done according to the current clinical condition with respect to patient goals of care and based on recommendations/guidelines. The patient/family has been informed about the current condition and further plan of care. Agreed with the plan of care and understood without any language barrier. Every effort was made to ensure accuracy of tallier. Any obvious errors or omissions should be clarified with the author of the document. Coding Level of Care Code Acute Code for Chg Fwd Diagnoses Acute right hip pain M25.551 Severe anemia D64.9 GERD (gastroesophageal reflux disease) K21.9 Severe dementia F03.C0 Severe malnutrition E43
[2025-09-03] VITALS (16 sets, daily range): BP systolic 118–167; BP diastolic 65–91; PULSE 76–99; RESP 15–21; TEMP 36.3–36.6; O2SAT 93–100
--- NOTE | 2025-09-03 05:42 | PC.NURSE ---
Pt is confused. pulling at IV. calling nurse names and uncoperative.
--- NOTE | 2025-09-03 06:40 | P.ANESASSM_ITS ---
Pre-Anesthetic Assessment Height/Weight: Height 1.6 m Weight 41.64 kg Temp Pulse Resp BP Pulse Ox O2 Del Method 97.3 F L 96 17 135/65 94 Room Air 09/03/25 05:41 09/03/25 05:41 09/03/25 05:41 09/03/25 05:41 09/03/25 05:41 09/03/25 05:41 Preop Diagnosis: Right hip intertrochanteric femur fracture displaced Operation Date: 09/01/25 13:20 Proposed Procedures p Trochanteric Femoral Nail(Right) - Rodger Allison, DO Operation Date: 09/02/25 14:00 Proposed Procedures p Trochanteric Femoral Nail(Right) - Rodger Allison, DO Operation Date: 09/03/25 07:00 Proposed Procedures p Trochanteric Femoral Nail(Right) - Rodger [place], DO Familial anesthetic complications: none Was Beta Tabitha taken within 24 hours: N/A Was Clonidine taken within 24 hours: N/A Last intake: Intake Last Liquid Date 09/02/25 Last Solid Date 09/02/25 Social No alcohol and No tobacco Exam alert (Dementia, combative), clear to auscultation bilaterally and regular rate & rhythm Airway Submandibular: within normal limits Cervical ROM: within normal limits Mallampati: Class II Dentition: false History/ROS No significant history except as noted and No significant complaints Pulmonary None reported CV/HEM None reported None reported Hepatic None reported GI Gastroesophageal Reflux Disease Metabolic None reported Musc/skel Hip Fracture Neuropsych Dementia Anesthetic Plan ASA status: 3 Anesthesia: General Risk of > 500 ml blood loss (7ml/kg in children): No Other Pertinent Information Hemoglobin 9.0 currently Medications/Allergies Home Medications ?Medication ?Instructions ?Recorded ?Confirmed ?Last Taken ?Type fast form cock up splint #1 ea 07/23/23 09/01/25 Unkn own Rx omeprazole 20 mg capsule,delayed 20 mg PO DAILY 09/01/25 08/31/25 History release acetaminophen 325 mg tablet 650 mg PO QID PRN Fever Or Pain 09/01/25 09/01/25 Unknown History (Tylenol) bisacodyl 10 mg rectal suppository 10 mg DC DAILY PRN Constipation 09/01/25 09/01/25 Unknown History bisacodyl 5 mg tablet 20 mg PO DAILY PRN Constipat ion 09/01/25 09/01/25 Unknown History brexpiprazole 2 mg tablet (Rexulti) 2 mg PO DAILY 08/0509/01/25 08/31/25 History diphenhydramine HCl 25 mg capsule 25 mg PO TID PRN Surjit h 09/01/25 09/01/25 Unknown History (Benadryl) haloperidol 1 mg tablet 1 mg PO DAILY 09/01/2509/0108/31/25 History hydrocodone 5 mg-acetaminophen 325 1 tab PO Q6H PRN Pa in 09/01/25 09/01/25 Unknown History mg tablet lorazepam 2 mg/mL oral concentrate 0.5 mg PO Q2H PRN r estlessness 09/01/25 09/01/25 Unknown History magnesium hydroxide 400 mg/5 mL 15 ml PO DAILY PRN Con stipation 09/01/25 09/01/25 Unknown History oral suspension (Milk of Magnesia) morphine concentrate 100 mg/5 mL 0.25 mg PO Q4H PRN Pa in 09/01/25 09/01/25 Unknown History (20 mg/mL) oral solution polyethylene glycol 3350 17 17 g PO DAILY PRN Constipa tion 09/01/25 09/01/25 Unknown History gram/dose oral powder (Miralax) rivastigmine 9.5 mg/24 hour 9.5 mg transdermal DAILY 1 09/01/25 Unknown History transdermal patch (Exelon Patch) sennosides 8.6 mg-docusate sodium 2 tab-cap PO DAILY P RN bowel 09/01/25 09/01/25 08/31/25 History 50 mg tablet (Senna-S) movement sodium phosphates 19 gram-7 118 ml DC DAILY PRN Consti pation 09/01/25 09/01/25 Unknown History gram/118 mL enema (Enema) Allergies Allergy/AdvReac Type Severity Reaction Status Date / Time No Known Allergies Allergy Verified 07/23/23 09:48 Current Medications Generic Name Dose Route Start Last Admin Trade Name Freq PRN Reason Stop Dose Admin Cyanocobalamin 1,000 mcg 09/01/25 18:00 09/02/25 04:30 Cyanocobalamin 1,000 Mcg Tablet PO Not Given On Hold: 09/02/25 12:29 DAILY LILLI Comment: Order held by Process Transfer Ferrous Sulfate 325 mg 09/01/25 18:00 09/02/25 07:46 Ferrous Sulfate Ec 325 Mg Tablet PO Not Given On Hold: 09/02/25 12:29 BIDWM LILLI Comment: Order held by Process Transfer Haloperidol 1 mg 09/02/25 05:00 09/02/25 04:31 Haloperidol 1 Mg Tablet PO Not Given On Hold: 09/02/25 12:29 DAILY LILLI Comment: Order held by Process Transfer Sodium Chloride 1,000 mls @ 75 mls/hr 09/01/25 08:00 09/02/25 07:46 Sodium Chloride 0.9% IV Infused On Hold: 09/01/25 13:04 .[id number] LILLI Infusion Comment: Order held by Process Transfer Sodium Chloride 1,000 mls @ 30 mls/hr 09/02/25 13:00 09/03/25 05:26 Sodium Chloride 0.9% IV 30 mls/hr .Q24H LILLI Administration Morphine Sulfate 4 mg 09/01/25 07:52 09/02/25 23:45 Morphine 4 Mg/Ml Sdv 1 Ml IVP 4 mg Q4H PRN Administration SEVERE [facility]IN Pantoprazole Sodium 40 mg 09/01/25 08:00 09/01/25 08:28 Pantoprazole 40 Mg Sdv IVP 40 mg On Hold: 09/01/25 13:04 Q24H LILLI Administration Comment: Order held by Process Transfer [facility] Anesthesia Medical History (Updated 09/02/25 @ 21:53 by Akiko [place] MD) Anxiety Social History (Updated 07/23/23 @ 09:50 by Rudi Pierre LPN) Smoking and tobacco/nicotine status: never used tobacco/nicotine Alcohol intake: never Substance/Drug Use: never Data Anesthesia 09/02/25 20:42 09/02/25 02:55 Short CBC 09/01/25 09/01/25 09/02/25 Range/Units 13:18 14:15 02:55 WBC 7.66 7.50 7.38 (3.29-11.43) 10^3/uL Hgb 5.80 L* 5.50 L* 8.80 L D (11.27-16.99) g/dL Hct 20.5 L* 19.2 L* 29.2 L D (36-47) % MCV 68.8 L 68.3 L 74.3 L D (85-98) fl Plt Count 360 339 295 (157-399) 10^3/cmm Neut % (Auto) 80.3 80.0 82.3 % Neut # (Auto) 6.15 6.00 6.07 (1.8-7.7) 10^3/uL 09/02/25 09/02/25 Range/Units 06:18 20:42 WBC 6.97 9.97 (3.29-11.43) 10^3/uL Hgb 8.80 L 9.00 L (11.27-16.99) g/dL Hct 28.4 L 29.6 L (36-47) % MCV 74.0 L 74.9 L (85-98) fl Plt Count 302 305 (157-399) 10^3/cmm Neut % (Auto) 80.7 88.7 % Neut # (Auto) 5.62 8.84 H (1.8-7.7) 10^3/uL BMP 09/01/25 09/02/25 13:18 02:55 Sodium 138 138 Potassium 3.8 3.9 Chloride 103 104 Carbon Dioxide 21 L 23 BUN 14 13 Creatinine 0.5 0.5 Glucose 109 110 Calcium 7.8 L 8.0 L Liver Function 09/01/25 09/02/25 Range/Units 13:18 02:55 Total Bilirubin 0.7 1.0 (0.15-1.2) mg/dL Direct Bilirubin 0.28 (0.00-0.30) mg/dL AST 26 33 H (0-32) U/L ALT 10 < 5 (0-33) U/L Alkaline Phosphatase 97 99 (35-105) U/L Albumin 2.8 L 2.9 L (3.5-5.2) g/dL Blood Bank 09/01/25 13:18 Blood Type O Positive Rho(D) Type Rh positive Antibody Screen Negative
--- NOTE | 2025-09-03 07:04 | W.PM.OPSUD ---
Surgery/Procedure H&P Update DATE OF PROCEDURE: September 03, 2025 DATE H&P PERFORMED: 09/01/25 H&P UPDATE INFORMATION: I have reviewed H&P completed within last 30 days, I have examined patient prior to procedure and No changes to prior documentation PREOP DIAGNOSIS: Right hip intertrochanteric femur fracture displaced PRIMARY INDICATION FOR PROCEDURE: Right hip intertrochanteric femur fracture displaced PLANNED PROCEDURE: Operation Date: 09/01/25 13:20 Proposed Procedures p Trochanteric Femoral Nail(Right) - Rodger Cooper DO Operation Date: 09/02/25 14:00 Proposed Procedures p Trochanteric Femoral Nail(Right) - Rodger Cooper DO Operation Date: 09/03/25 07:00 Proposed Procedures p Trochanteric Femoral Nail(Right) - Rodger Cooper DO
[2025-09-03] MEDS: tranexamic acid 1,000 mg/10mL SDV 1000 MG IV (07:10)
[2025-09-03] MEDS: ceFAZolin 2,000 mg SDV 2000 MG IVP (07:15)
--- NOTE | 2025-09-03 08:43 | P.BOP_ITS ---
Date of Procedure: 09/03/2025 Surgeon: Rodger Cooper DO Unified Communications Engineer(s): Mt Cooper PA-C Procedure(s) performed: Right hip long trochanteric femur nail Findings of the procedure(s): Patient underwent procedure as planned without issues or complications. Upon further evaluation once I was able to get patient sleep and evaluate the fracture pattern this did have significant subtrochanteric involvement as a result elected for a long trochanteric femur nail. She underwent the procedure as planned without issues or any complications. Taken to recovery in stable condition. Estimated blood loss: 100 mL Specimen(s) removed: None Post-operative diagnosis: Right hip intertrochanteric femur fracture with subtrochanteric extension
--- NOTE | 2025-09-03 08:45 | P.OP_ITS ---
Operative Report Date of procedure: September 03, 2025 Surgeon: Rodger Cooper DO Corporate Recruiter: [place] Cooper PA-C: PA was necessary for assistance in this case with assistance with reduction, assistance with instrumentation and fracture fixation with trochanteric femur nail, assistance and wound closure and dressing application. Procedure: Preoperative diagnosis: Right displaced intertrochanteric femur fracture Post-op diagnosis: Right displaced intertrochanteric femur fracture with subtrochanteric extension Procedure done: ?Right intertrochanteric with subtrochanteric extension femur fracture ORIF with long trochanteric femur nail Implants: streamit gamma?nail?long 11 mm x 360 mm x 125 degree Lag screw 10.5 mm x 90 mm Distal locking screw 5 mm x (40 and 42.5 mm) Surgeon: Rodger Cooper DO Estimated blood loss: 100 mL IV fluids: 800 mL Urine output: 100 mL Complications: See operative report Findings: See operative report narrative Condition: stable Disposition: Floor Brief History: Patient sustained a fall and was found to have a Right intertrochanteric hip fx. Pt has been unable to bear weight, Right hip/lower extremity shortened and externally rotated.? At this point time Pt was admitted by the hospitalist team and orthopedics was consulted.? Refer to consult note for detailed HPI.? We talked about treatment options as far as nonoperative and operative intervention. Recommend Right hip?trochanteric femur?nail.? At this point time I spoke with patient's POA and she would like to pursue surgical intervention for benefits of pain control and chance for mobilization with transfers.? ?Patient understands the ins and outs of procedure, the risk benefits complication alternatives of surgical nonsurgical treatment options.? Understanding risk of surgery patient's POA agrees to proceed with surgical intervention all questions answered.? Consent obtained verbally over the phone Procedure: Patient seen evaluated in the preoperative holding area.? Consent was obtained.? Correct extremity was then marked.? Once cleared by anesthesia and the hospitalist team patient was taken back to the operative suite.? Patient underwent anesthesia per the anesthesia department.? Once appropriately anesthetized patient was placed on a fracture Wiggins table.? Patient was appropriately secured to the bed.? All bony prominences were well-padded.? At this point time patient received appropriate preoperative antibiotics.? Final timeout was performed.? Prior to beginning surgery a standard closed reduction maneuver was placed on the Wiggins table and large C-arm was brought in.? After performing a closed reduction maneuver there was able to achieve satisfactory reduction of Right intertrochanteric femur fracture.? Fracture site did? extend into the subtrochanteric region as result plan was for a Long?nail.? ?This point time the Right lower extremity was then prepped and draped in standard orthopedic fashion. A standard longitudinal incision was made just proximal to the greater?trochanter roughly 4 cm in length sharp scalpel vision was made through skin and subcutaneous tissue.? I then utilized a blunt Tony to split? fascia and mobilized directly down to the greater?trochanter.? I then inserted my starting guidewire which was placed appropriate starting position the tip of the greater?trochanter.? This was advanced in AP and lateral films to be in center center position and advanced to the level lesser?trochanter.? This was confirmed to be in center center position on AP and lateral imaging.? Once this was done I then introduced my opening reamer which was then subsequently guide pin removed.? Next a long ball-tipped guidewire was then placed in center center position distally at the superior pole the patella.? I then took a measurement which was 360 mm for length of the long?nail?screw.? The fracture reduction was maintained during reaming and I subsequently utilized flexible reamers and reamed sequentially up to a size 13 mm and elected for a 11 mm?nail.? I selected a 11 mm x 360 mm x 125 degree. At this point time the?nail?was then loaded onto the [place] gamma?trochanteric?nail?guide.? This was placed within the canal and confirmed with XR and the setscrew was then gently placed not locked.? The?nail?was then impacted to appropriate depth .? X-rays were taken confirming appropriate positioning of the?nail?distally and reduction was maintained.? ?At this point time I then inserted my lag screw guide and subsequently made a small incision through skin and subcutaneous tissue splitting the IT band longitudinally and the guide was placed directly onto bone.? Next I then subsequently placed the guidewire in center center position in the head with an appropriate tip to apex distance this was confirmed with multiple orthogonal images.? Once I was satisfied with my planned lag screw placement I then measured which was 90 mm.? I then set my cannulated drill and subsequently reamed this into the head at appropriate depth.? I then had my rep open the 10.5 mm x 90 mm lag screw which was then opened on the back table and subsequently screwed into place over my cannulated drill guide.? This was placed with Torneo de [employer] nt tip to apex distance.? Next I then utilized the compressing device and subsequently compressed my fracture after I let off traction.? This had excellent fracture compression and opposition and closing down to my fracture line.? Next I then locked the?nail?by locking my setscrew.? This point time the guidewire as well as the sleeve was then removed.? Next I obtained perfect circles distally at the knee to lock the?nail?distally.? I selected to first place my static screw in perfect [place] technique small stab incision was made blunt dissection of the bone and then utilizing a drill and p erfect [place] technique drill bit was then advanced and confirmed to be within the?nail?utilizing fluoroscopic imaging I then subsequently drilled measured and placed appropriate length static locking screw.? I then subsequently added an additional screw in eccentric fashion for possible dynamization later if necessary this is placed at the central portion of the oblong hole subsequently drilled measured and placed appropriate length screw.? This completed my construct fixation the guide was subsequently removed.? And final images were taken.? AP and lateral of the Right intertrochanteric/subtrochanteric femur fracture which showed stable reduction and stable fixation.? Incision was then thoroughly irrigated.? Hemostasis was maintained with electrocautery.? I then once again thoroughly irrigated the incisions and then subsequently closed in layered fashion of 0 Vicryl 2-0 Vicryl and tiffanie.? Silverlon dressings applied.? Tegaderm 4 x 4's ABD foam tape and Yosef wrap, patient was then awakened from anesthesia transported onto the hospital bed and taken to PACU in stable condition.? Patient tolerated procedure without complications. Disposition: Patient taken to PACU in stable condition.? Postoperatively,? Patient to receive appropriate discharge instructions as well as pain medication DVT prophylaxis postoperatively.? She will be allowed weightbearing as tolerated Right lower extremity.? Will receive appropriate postoperative antibiotics, PT/OT.? Patient to follow-up in the orthopedic office in 2 weeks.? Patients family understands and agrees with current plan.? All questions answered.
--- NOTE | 2025-09-03 09:14 | XRR_ITS ---
PROCEDURE INFORMATION: Exam: XR Right Femur Exam date and time: 09/03/2025 09:13 AM Age: 85 years old Clinical indication: Pain; Other: Post op; Prior surgery; Surgery date: Post-operative (0-2 days); Surgery type: RT long tfn; Additional info: Post op RT long tfn TECHNIQUE: Imaging protocol: Radiologic exam of the right femur. Views: 2 views. COMPARISON: CR XR femur RT min 2V* [id number] 09/01/2025 01:50 PM FINDINGS: Tubes, catheters and devices: Hardware appears intact. Bones/joints: Leonardo and screw fixation of proximal right femoral fracture. Air in the soft tissues is consistent with recent surgical intervention. Alignment is normal. Osteopenia. The right femoral head is well seated in the acetabulum. Soft tissues: Skin tiffanie over the lateral right hip. XR/XR femur RT min 2V* [id number] IMPRESSION: Postop fixation of proximal right femoral fracture.
[2025-09-03] MEDS: morphine 4 mg/mL SDV 1 mL IVP (10:03)
--- NOTE | 2025-09-03 10:48 | ANE.PACU2 ---
Inpatient post-anesthesia follow up: Airway intact: Yes Vital signs: Temperature 97.9 F Pulse Rate 94 Respiratory Rate 17 Blood Pressure 137/79 Pulse Oximetry 94 Oxygen Delivery Me thod [ Room Air Current Rate & Del joceline] Oxygen Delivery Me thod Nasal Cannula Oxygen Flow Rate 3 Fraction of Inspir ed Oxygen Hydration adequate: Yes Nausea and vomiting: No Pain level: Other (not able to appropriately respond to questions) Mental status: Baseline Additional Comments: I personally helped escort patient up to medical surgical floor. Patient remains demented and agitated. Trying to pull off nasal cannula. Very aggressive towards staff. This was her baseline prior to the surgery
[2025-09-03] MEDS: ceFAZolin 2,000 MG in sodium chloride 0.9% (plus) 50 ML 100 MG IV ×2 (14:57→23:53)
--- NOTE | 2025-09-03 15:32 | P.PN_ITS ---
Subjective 2 Subjective: Patient was seen in the morning, she was disoriented and still gets sometimes aggressive Case of severe dementia, patient underwent right hip surgery as per the orthopedic surgeon, right intertrochanteric with subtrochanteric extension femur fracture ORIF Power of branch customer service representative on board for the further plans of care Currently doing better still demented and is uncooperative for examination or further history. Vitals/I&O/Wt Last Vital Signs Temp 97.9 F 09/03/25 10:05 Pulse 95 09/03/25 11:37 Resp 16 09/03/25 11:37 BP 126/78 09/03/25 11:37 Pulse Ox 94 09/03/25 10:05 O2 Del Method Room Air 09/03/25 11:28 O2 Flow Rate 3 09/03/25 09:21 09/03/25 09/03/25 09/03/25 06:59 14:59 22:59 Intake Total 487.5 / 1487.5 305.5 / 305.5 Output Total 200 / 200 Balance 487.5 / 637.5 105.5 / 105.5 Weight last 48 hrs Weight 41.64 kg Physical Exam 2 Narrative: General: Alert and disoriented, physical deconditioning looks malnourished, sometimes gets agitated on calling due to severe dementia lying comfortably without any distress and does not allow to examine Patient not examined since she gets agitated and tried to push and punch due to her severe dementia. She was not aware that she has surgery but did not report any pain. She asked for water and was provided. Urinary Catheter Management: Howell: Cath Placed During This Visit: yes Urinary Catheter Date of Insertion: 09/03/25 Urinary Catheter Time of Insertion: 07:30 Data 09/02/25 20:42 09/02/25 02:55 A&P Assessment and plan 1. Acute right hip pain: Orthopedics on board, plan for right hip surgery Status post right hip ORIF, for details refer to the surgeon notes Currently stable no pain and at baseline OT PT orders placed but however patient is uncooperative and gets agitated in distress to cooperate for physical therapy. To monitor and observe with labs today and tomorrow, if stable for discharge back to [facility] after clinical assessment orthopedic evaluation Of note: The patient power of branch customer service representative mentioned that the patient is DNR however to proceed with her right hip fracture with full code and later on to continue with her DNR status. Thorough discussion has been made with the power of branch customer service representative, all the risk and benefits has been discussed, and agreed with the plan of care without any language barrier 2. Severe anemia: Anemia workup showed severe iron deficiency anemia and vitamin B12 deficiency Correction started S/p PRBC and stable hemoglobin Continue to follow CBC and correction accordingly 3. GERD (gastroesophageal reflux disease): PPI daily 4. Severe dementia: Patient started on her home medications for further agitation and to continue 5. Severe malnutrition: Dietitian consulted for further recommendation PDMP PDMP Reviewed: Not Reviewed Attestations 2 Medical Necessity Statement*: Patient will stay overnight for observation s/p right hip ORIF Time Spent in Patient Care: 16 - 35 minutes (>than 50% of time sp ent in counselling and/or direct pt care on unit) . Other Attestations: Patient condition has been discussed at length with the patient/family, I have independently reviewed the chart labs imaging/diagnostics/EKG. the goals of care and code status with the patient/family/NOK/legal industrial relations representative, and documented accordingly. The management has been done according to the current clinical condition with respect to patient goals of care and based on recommendations/guidelines. The patient/family has been informed about the current condition and further plan of care. Agreed with the plan of care and understood without any language barrier. Every effort was made to ensure accuracy of band leader. Any obvious errors or omissions should be clarified with the author of the document. Coding Level of Care Code Acute Code for Chg Fwd Diagnoses Acute right hip pain M25.551 Severe anemia D64.9 GERD (gastroesophageal reflux disease) K21.9 Severe dementia F03.C0 Severe malnutrition E43
--- NOTE | 2025-09-03 15:36 | PM.MISC ---
Miscellaneous Note Purpose of Documentation: Labs follow-up Note: Sometimes patient gets agitated and distressed with aggressive behavior when blood is tried to be drawn therefore it is understandable that sometimes the labs are not on time available. Emphasis on patient reorientation and calming techniques to proceed
[2025-09-03] MEDS: haloperidol inj 5 mg/mL INJ 1 mL IM (22:57)
[2025-09-03] MEDS: LORazepam 2 mg/mL INJ 1 mL 0.5 MG IVP (22:57)
[2025-09-04 02:33] VITALS: RESP 16; O2SAT 95
[2025-09-04] MEDS: morphine 4 mg/mL SDV 1 mL IVP ×2 (02:33→09:09)
[2025-09-04 05:09] LABS: Hematocrit 27.3 % (36-47); Hemoglobin 8.00 g/dL (11.27-16.99); Mean Corpuscular HGB Conc 29.3 g/dL (30-55); Mean Corpuscular Hemoglobin 22.2 pg (27-33); Mean Corpuscular Volume 75.6 fl (85-98); Nucleated Red Blood Cells % 0 %; Platelet Count 295 10^3/cmm (157-399); Red Blood Count 3.61 10^6/uL (3.85-5.65); White Blood Count 7.04 10^3/uL (3.29-11.43)
[2025-09-04 05:29] LABS: Anion Gap 16.5 (5-19); Blood Urea Nitrogen 15 mg/dL (8-23); Calcium 8.1 mg/dL (8.5-10.5); Carbon Dioxide 19 mmol/L (22-29); Chloride 111 mmol/L (98-107); Creatinine Clr Calc Pharmacy 32.5674; Glucose 102 mg/dL (65-115); Osmolality Calculated 297 mOsm/kg (285-295); Potassium 3.5 mmol/L (3.5-5.1); Sodium 143 mmol/L (136-145)
[2025-09-04 07:50] VITALS: BP 129/80; PULSE 110; RESP 17; TEMP 36.7; O2SAT 94
[2025-09-04] MEDS: pantoprazole 40 mg SDV IVP (09:08)
[2025-09-04 09:09] VITALS: RESP 17; O2SAT 94
[2025-09-04] MEDS: ceFAZolin 2,000 MG in sodium chloride 0.9% (plus) 50 ML 100 MG IV (09:09)
[2025-09-04 11:51] VITALS: BP 142/88; PULSE 105; RESP 17; TEMP 36.7; O2SAT 93
[2025-09-04 12:53] VITALS: BP 142/88; PULSE 105; RESP 17; TEMP 36.7; O2SAT 93
--- NOTE | 2025-09-04 14:07 | PM.PN ---
Subjective Subjective: Patient seen and examined today prior to surgery. She is returning back to rehab facility. Patient more awake and alert today. Still dementia at baseline Vitals/I&O/Wt Last Vital Signs Temp 98.0 F 09/04/25 12:53 Pulse 105 H 09/04/25 12:53 Resp 17 09/04/25 12:53 BP 142/88 09/04/25 12:53 Pulse Ox 93 09/04/25 12:53 O2 Del Method Room Air 09/04/25 07:43 O2 Flow Rate 3 09/03/25 09:21 09/03/25 09/04/25 09/04/25 22:59 05:59 14:59 Intake Total 50 / 355.5 1050 / 1405.5 350 / 350 Balance 50 / 155.5 1050 / 1205.5 350 / 350 Weight last 48 hrs Weight 92 lb 9.6 oz Physical Exam Narrative: Patient's dementia limits examination unable to follow simple commands. Right hip examination: Dressing on in place, clean dry and intact. No evidence of saturation. Patient has normal postoperative swelling and tenderness to palpation to the right hip/femur. Compartments are soft compressible,'s calf soft and nontender. Unable to assess motor or sensory secondary to patient's baseline dementia, distal pulses are palpable right lower extremity warm well-perfused. Urinary Catheter Management: Howell: Cath Placed During This Visit: yes, but has since been removed by the nurse Reason for Continuing Indwelling Catheter: Other Urinary Catheter Date of Insertion: 09/03/25 Urinary Catheter Time of Insertion: 07:30 Date Urinary Catheter Removed: 09/04/25 Time Urinary Catheter Discontinued: 02:07 Data 09/04/25 04:40 09/04/25 04:40 Xray Ortho: Radiologist's impression: Patient: Lila Pitt Unit #: [id number] : 1940 Age/Sex: 85 / F ADM Date: 09/01/25 Loc: [facility] Room/Bed: [facility] Attending Dr: Akiko Birmingham MD Ordering Provider/Ordering MD: Rodger Cooper Date of Service: 09/03/25 Procedure(s): XR femur RT min 2V* [id number] Accession Number(s): [id number] Report Number: [id number] PROCEDURE INFORMATION: Exam: XR Right Femur Exam date and time: 09/03/2025 09:13 AM Age: 85 years old Clinical indication: Pain; Other: Post op; Prior surgery; Surgery date: Post-operative (0-2 days); Surgery type: RT long tfn; Additional info: Post op RT long tfn TECHNIQUE: Imaging protocol: Radiologic exam of the right femur. Views: 2 views. COMPARISON: CR XR femur RT min 2V* [id number] 09/01/2025 01:50 PM FINDINGS: Tubes, catheters and devices: Hardware appears intact. Bones/joints: Leonardo and screw fixation of proximal right femoral fracture. Air in the soft tissues is consistent with recent surgical intervention. Alignment is normal. Osteopenia. The right femoral head is well seated in the acetabulum. Soft tissues: Skin tiffanie over the lateral right hip. XR/XR femur RT min 2V* [id number] IMPRESSION: Postop fixation of proximal right femoral fracture. A&P Assessment and plan 1. Closed right hip fracture: Plan: Weightbearing as tolerated right lower extremity Complete?postoperative antibiotics Complete?postoperative TXA X-rays reviewed,?stable right long trochanteric femur nail Resume diet per primary Pain control PT/OT DVT prophylaxis Labs reviewed Ice and elevate as needed for pain and swelling Antinausea medication as needed Patient stable for discharge from orthopedic standpoint Patient orthopedic surgery team will sign off patient at this time follow peripherally if there is any question pertaining patient care for for contact orthopedics on-call.? Discharge instructions as well as discharge medications are in patient's chart.? She will follow-up with us in the office in 2 weeks.? Patient understands agrees with current plan.? Questions answered. PDMP PDMP Reviewed: Not Reviewed Attestations Medical Necessity Statement*: Ongoing care status post hip trochanteric femur nail Coding Level of Care Code Acute Code for Chg Fwd Diagnoses Closed right hip fracture S72.001A Time Spent (min) 10
--- NOTE | 2025-09-04 14:39 | P.DS_ITS ---
Discharge Providers Date of Admission: 09/01/25 07:25 Date of Discharge: September 04, 2025 Attending Provider at Admission: Danyelle Amin MD Attending Provider at Discharge: Akiko Birmingham MD Diagnoses at Discharge Discharge Diagnosis 1. Acute right hip pain: 2. Severe anemia: 3. GERD (gastroesophageal reflux disease): 4. Severe dementia: 5. Severe malnutrition: 6. Closed right hip fracture: Reason for Visit Reason for Visit: right hip pain post fall Brief History: Lila Pitt is a 85 year old female prison resident with a history of dementia who had sustained a mechanical fall fracturing the right hip. Patient then was brought in to be evaluated and possibly repaired at the broken hip. Patient is very demented cannot give you any history. The paper for the power of signal operator linguist was contacted and further confirmed patient's DNR status. Hospital Course Hospital Course Based on the patient current presentation with right hip fracture her DNR status was changed to full code for the management of fracture after discussion with the power of signal operator linguist and later to continue with her hospice. The patient was kept in the hospital and underwent surgery without any complication. The patient was found to have severe anemia which was of mixed picture iron deficiency and vitamin B12 deficiency. He received blood transfusion accordingly to keep her hemoglobin above 7-8. Underwent surgery without any complications. Iron supplements and vitamin B12 supplements started on this admission and to continue postdischarge. To be discharged with Lovenox total 35 days with adequate analgesia and follow-up with orthopedics after 2 weeks. The patient plan was discussed with power of signal operator linguist and agreed with it. More or less the patient during her hospital stay was kind of agitated and did not like to be examined or interact with during medical management. Furthermore this also was a hindrance in proceeding with her physical/occupational therapy sessions. Therefore to avoid any further distress to the patient, the patient was provided adequate care as per her current clinical condition and after discussion with power of signal operator linguist. Patient condition has been discussed at length with the patient/family, I have independently reviewed the chart labs imaging/diagnostics/EKG. the goals of care and code status with the patient/family/NOK/legal collections representative, and documented accordingly. The management has been done according to the current clinical condition with respect to patient goals of care and based on recommendations/guidelines. The patient/family has been informed about the current condition and further plan of care. Agreed with the plan of care and understood without any language barrier. Every effort was made to ensure accuracy of core piler. Any obvious errors or omissions should be clarified with the author of the document. Physical Exam Narrative: General: Alert and disoriented, physical deconditioning looks malnourished, sometimes gets agitated on calling due to severe dementia lying comfortably without any distress and does not allow to examine Patient not examined since she gets agitated and tried to push and punch due to her severe dementia. She was not aware that she has surgery but did not report any pain. She asked for water and was provided. Urinary Catheter Management: Howell: Cath Placed During This Visit: yes, but has since been removed by the nurse Reason for Continuing Indwelling Catheter: Other Urinary Catheter Date of Insertion: 09/03/25 Urinary Catheter Time of Insertion: : Date Urinary Catheter Removed: 09/04/25 Time Urinary Catheter Discontinued: 02:07 Discharge Data Studies Completed and Pending Completed Studies During Hospitalization Category Date Time Status XR femur RT min 2V* [id number] Routine Exams 09/03/25 09:14 Completed XR femur RT min 2V* [id number] Stat Exams 09/01/25 11:01 Completed XR hip RT 1V wo/w pel [id number] Stat Exams 09/01/25 02:41 Completed Pending at discharge Category Date Time Status C-arm Fluoroscopy [id number] Routine Exams 09/02/25 14:31 Taken Basic Metabolic Panel AM LABS Lab 09/05/25 04:00 Ordered Basic Metabolic Panel AM LABS Lab 09/06/25 04:00 Ordered Complete Blood Count w/Auto AM LABS Lab 09/05/25 04:00 Ordered Complete Blood Count w/Auto AM LABS Lab 09/06/25 04:00 Ordered Radiology Impressions Hip X-Ray 09/01/25 02:41 IMPRESSION: Displace intertrochanteric/subtrochanteric femoral fracture with proximal femoral shaft override. Femur X-Ray 09/03/25 09:14 IMPRESSION: Postop fixation of proximal right femoral fracture. Laboratory Results WBC 7.04 10^3/uL (3.29-11.43) 09/04/25 04:40 RBC 3.61 10^6/uL (3.85-5.65) L 09/04/25 04:40 Hgb 8.00 g/dL (11.27-16.99) L 09/04/25 04:40 Hct 27.3 % (36-47) L 09/04/25 04:40 MCV 75.6 fl (85-98) L 09/04/25 04:40 MCH 22.2 pg (27-33) L 09/04/25 04:40 MCHC 29.3 g/dL (30-55) L 09/04/25 04:40 RDW 21.0 % (12.1-15.1) H 09/04/25 04:40 Plt Count 295 10^3/cmm (157-399) 09/04/25 04:40 MPV 9.1 fL (7.4-10.4) 09/04/25 04:40 Neut % (Auto) 85.6 % 09/04/25 04:40 Lymph % (Auto) 5.7 % 09/04/25 04:40 [place] % (Auto) 8.1 % 09/04/25 04:40 Eos % (Auto) 0.1 % 09/04/25 04:40 Baso % (Auto) 0.1 % 09/04/25 04:40 Neut # (Auto) 6.02 10^3/uL (1.8-7.7) 09/04/25 04:40 Lymph # (Auto) 0.4 10^3/uL (0.8-4.8) L 09/04/25 04:40 [place] # (Auto) 0.6 10^3/uL (0.2-0.9) 09/04/25 04:40 Eos # (Auto) 0.0 10^3/uL (0.0-0.8) 09/04/25 04:40 Baso # (Auto) 0.0 10^3/uL (0.0-0.1) 09/04/25 04:40 Nucleated RBC % (auto) 0 % 09/04/25 04:40 Nucleated RBCs # 0.0 /100WBC 09/04/25 04:40 Sodium 143 mmol/L (136-145) 09/04/25 04:40 Potassium 3.5 mmol/L (3.5-5.1) 09/04/25 04:40 Chloride 111 mmol/L (98-107) H 09/04/25 04:40 Carbon Dioxide 19 mmol/L (22-29) L 09/04/25 04:40 Anion Gap 16.5 (5-19) 09/04/25 04:40 BUN 15 mg/dL (8-23) 09/04/25 04:40 Creatinine 0.5 mg/dL (0.5-0.9) 09/04/25 04:40 GFR Calculation Not Reportable 09/04/25 04:40 Glucose 102 mg/dL (65-115) 09/04/25 04:40 Calculated Osmolality 297 mOsm/kg (285-295) H 09/04/25 04:40 Calcium 8.1 mg/dL (8.5-10.5) L 09/04/25 04:40 Phosphorus 3.1 mg/dL (2.5-4.5) 09/01/25 13:18 Magnesium 1.9 mg/dL (1.7-2.3) 09/01/25 13:18 Iron 10 ug/dL (37-145) L 09/01/25 13:18 Ferritin 8 ng/mL (15-150) L 09/01/25 13:18 Total Bilirubin 1.0 mg/dL (0.15-1.2) 09/02/25 02:55 Direct Bilirubin 0.28 mg/dL (0.00-0.30) 09/01/25 13:18 AST 33 U/L (0-32) H 09/02/25 02:55 ALT < 5 U/L (0-33) 09/02/25 02:55 Alkaline Phosphatase 99 U/L (35-105) 09/02/25 02:55 Total Protein 5.9 g/dL (6.6-8.7) L 09/02/25 02:55 Albumin 2.9 g/dL (3.5-5.2) L 09/02/25 02:55 Globulin 3.0 g/dL (1.3-4.6) 09/02/25 02:55 Vitamin B12 211 pg/mL (232-1245) L 09/01/25 13:18 Folate 14.8 ng/mL (4.8-37.3) 09/01/25 13:18 TSH 1.61 uIU/mL (0.27-4.20) 09/01/25 13:18 Free T4 1.25 ng/dL (0.82-1.77) 09/01/25 13:18 Free T3 1.9 PG/ML (2.0-4.4) L 09/01/25 13:18 Blood Type O Positive 09/01/25 13:18 Rho(D) Type Rh positive 09/01/25 13:18 Antibody Screen Negative 09/01/25 13:18 Crossmatch See Detail 09/01/25 13:18 Vitals Last Vital Signs Temp 98.0 F 09/04/25 12:53 Pulse 105 H 09/04/25 12:53 Resp 17 09/04/25 12:53 BP 142/88 09/04/25 12:53 Pulse Ox 93 09/04/25 12:53 O2 Del Method Room Air 09/04/25 07:43 O2 Flow Rate 3 09/03/25 09:21 Discharge Plan Discharge Patient Disposition: Hospice - Medical Facility Condition: Stable Prescriptions: New ferrous sulfate 325 mg (65 mg iron) Tablet,Delayed Release (Dr/Ec) 325 mg PO BIDWM Qty: 90 0RF enoxaparin 30 mg/0.3 mL Syringe 30 mg SUBCUT Q24H 33 Days Qty: 9.9 0RF cyanocobalamin (vitamin B-12) [Vitamin B-12] 1,000 mcg Tablet 1,000 mcg PO DAILY 90 Days Qty: 90 0RF mupirocin 2 % Ointment 1 applic nasal BID 10 Days Qty: 5 0RF multivitamin with folic acid [Thera] 400 mcg Tablet 1 tab PO DAILY Qty: 60 0RF amoxicillin-pot clavulanate [Augmentin] 500-125 mg tablet 1 tab PO Q12H 10 Days Qty: 20 0RF Continued omeprazole 20 mg capsule,delayed release(DR/EC) 20 mg PO DAILY (DME) fast form cock up splint See Rx Instructions .Route .MEDSUPPLY Qty: 1 0RF Rx Instructions: As directed acetaminophen [Tylenol] 325 mg Tablet 650 mg PO QID PRN (Reason: Fever Or Pain) morphine concentrate 100 mg/5 mL (20 mg/mL) solution 0.25 mg PO Q4H PRN (Reason: Pain) hydrocodone-acetaminophen 5-325 mg tablet 1 tab PO Q6H PRN (Reason: Pain) sennosides-docusate sodium [Senna-S] 8.6-50 mg Tablet 2 tab-cap PO DAILY PRN (Reason: bowel movement) haloperidol 1 mg tablet 1 mg PO DAILY magnesium hydroxide [Milk of Magnesia] 400 mg/5 mL Suspension 15 ml PO DAILY PRN (Reason: Constipation) bisacodyl 10 mg Suppository 10 mg SC DAILY PRN (Reason: Constipation) diphenhydramine HCl [Benadryl] 25 mg Capsule 25 mg PO TID PRN (Reason: Rash) Enema 19-7 gram/118 mL Enema 118 ml SC DAILY PRN (Reason: Constipation) polyethylene glycol 3350 [Miralax] 17 gram/dose Powder 17 g PO DAILY PRN (Reason: Constipation) lorazepam 2 mg/mL concentrate 0.5 mg PO Q2H PRN (Reason: restlessness ) bisacodyl 5 mg Tablet 20 mg PO DAILY PRN (Reason: Constipation) rivastigmine [Exelon Patch] 9.5 mg/24 hour patch 24 hour 9.5 mg transdermal DAILY Rexulti 2 mg tablet 2 mg PO DAILY Utility Worker OK for DC: Orthopedics Discharge Order = DC NOW: Discharge Order (Routine); Ordered 09/04/25 Ordered By: Akiko Birmingham Referrals: [facility] [Outside] [facility] [Outside] Rodger Cooper DO [Physician, Orthopedics] - 2 weeks Referral Note: We have notified your physician's clinic of the need for a follow-up appointment to be scheduled. If you have not heard from them within the next 2 business days, please call them directly. Discharge Diet: Regular Discharge Activity: Limit activity as instructed Patient Instructions: Acute Wound Care (DC), Opioid Safety, Post Anesthesia Care, Patient Portal & Angela Instructions Activity Restrictions/Additional Instructions: Orthopedic discharge instructions: Weightbearing as tolerated to the operative extremity Ice as needed for pain and swelling Encourage knee and hip range of motion as tolerated PT/OT Take pain medication as prescribed Take antinausea medication as needed Supplement with Citracal vitamin D for bone health and healing Take (blood thinner) as prescribed for blood clot prevention Take Colace as needed for constipation Leave Silverlon dressings on and in place for 7 days. After this they may be removed you may shower/rinse incisions with warm soapy water, pat dry redress with a dry dressing. Okay to sponge bath/shower with Silverlon dressings as they should be waterproof however if they do get saturated or wet please take these off dry the incision and redressed with a new dry sterile bandage. Follow-up in the orthopedic office with Dr. Cooper in 2 weeks for repeat x-rays and incision check/staple removal Contact the office for any questions or concerns (i.e. increasing redness and drainage around the incision, fevers, or chills, or severe worsening in pain/change in symptoms) Discharge Attestations Time Spent in Discharge Care*: greater than 30 min Specific Discharge Activities: educating patient, educating and/or supporting family/caregiver, discussing with pcp/other providers, discussing with keycase assembler/social workers/dc planners, documenting/other paperwork and evaluating patient/reviewing data Status at Discharge: Cognitive status at discharge: severely impaired cognition , Behavioral status at discharge: can be uncooperative , Functional status at discharge: bed bound , Overall status at discharge: patient is progressing back to baseline Quality Metrics Clinical Quality Measures [ No reported AMI, CVA or VTE this stay] Coding Level of Care Code Acute Code for Chg Fwd Diagnoses Acute right hip pain M25.551 Severe anemia D64.9 GERD (gastroesophageal reflux disease) K21.9 Severe dementia F03.C0 Severe malnutrition E43 Closed right hip fracture S72.001A
== END 2025-09-04 15:47 | disposition intermediate care facility (04) | DRG 480 ==
LOC: ER 02:44 → ER IP 07:29 → MEDSURG 07:35
PROVIDERS: Student in an Organized Health Care Education/Training Program; Admitting Provider Internal Medicine; Emergency Provider Student in an Organized Health Care Education/Training Program; Visit Provider Student in an Organized Health Care Education/Training Program
PROC: (CPT 27245; principal; 2025-09-01 12:50)
PROC: 0QS606Z Reposition Right Upper Femur with Intramedullary Internal Fixation Device, Open Approach (ICD-10-PCS; CPT 27245; principal; 2025-09-03 07:00)
DX: S72.141A Displaced intertrochanteric fracture of right femur, initial encounter for closed fracture (principal); E43 Unspecified severe protein-calorie malnutrition; F03.C11 Unspecified dementia, severe, with agitation; F03.C4 Unspecified dementia, severe, with anxiety; Z68.1 Body mass index [BMI] 19.9 or less, adult; F03.C3 Unspecified dementia, severe, with mood disturbance; W19.XXXA Unspecified fall, initial encounter; F32.A Depression, unspecified; Z66 Do not resuscitate; K21.9 Gastro-esophageal reflux disease without esophagitis; D50.9 Iron deficiency anemia, unspecified; E53.8 Deficiency of other specified B group vitamins
CPT/HCPCS: 36415; 36430; 51702; 73501; 73552; 76000; 80048; 80053; 80076; 82607; 82728; 82746; 83540; 83735; 84100; 84439; 84443; 84481; 85025; 86850; 86900; 86920; 93005; 96372; 99285; C1713; J0131; J0690; J1200; J1630; J1650; J2060; J2250; J2270; J2470; J2704; J3010; J7030; J9999; P9016